=== PATIENT | male | born 1955 | race Asian ===

== ENCOUNTER 2016-12-12 07:42 | Day surgery (SDC) | payer OTHER ==
[~2016-12-12] VITALS: Ht 165.1 cm; Wt 97.7 kg
[~2016-12-12 07:42] MED LIST: CEFAZOLIN 1 GM/50 ML (PMX) 50 ML IVPB ONE; SOD CHLORIDE 0.9% 1,000 ML IV SCH
[2016-12-12 08:32] VITALS: Ht 165.1 cm; Wt 97.7 kg
[2016-12-12 08:38] VITALS: BP 121/81; PULSE 77; RESP 16
[2016-12-12] MEDS ORDERED: METF-385 (08:49)
[2016-12-12] MEDS ORDERED: GEMF600T60 PO (08:49)
[2016-12-12] MEDS ORDERED: GABA300C16 (08:49)
[2016-12-12] MEDS ORDERED: IRON PO (08:49)
[2016-12-12] MEDS ORDERED: CARB200T3 PO (08:49)
[2016-12-12] MEDS ORDERED: CARV3.1260 (08:49)
[2016-12-12] MEDS ORDERED: SIMV40TA7 (08:49)
[2016-12-12] MEDS ORDERED: FLUC200T52 PO (08:49)
[2016-12-12] MEDS ORDERED: METF-388 (08:49)
[2016-12-12] MEDS ORDERED: PROPOFOL 20 ML ONE (08:57)
[2016-12-12] MEDS ORDERED: FENTAnyl 50 MCG/ML VIAL ONE (08:57)
[2016-12-12] MEDS ORDERED: LIDOCAINE 2% (SDV) 5 ML INJ ONE (08:57)
[2016-12-12] MEDS ORDERED: ROCURONIUM 50 MG INJ ONE (08:57)
[2016-12-12] MEDS ORDERED: GLYCOPYRROLATE 0.4 MG INJ ONE (08:57)
[2016-12-12] MEDS ORDERED: NEOSTIGMINE 3 MG/3 ML SYRINGE ONE (08:57)
[2016-12-12] MEDS ORDERED: MIDAZOLAM 1 MG/ML 2 ML INJ ONE (08:58)
[2016-12-12] MEDS ORDERED: CEFAZOLIN 1 GM INJ ONE (08:59)
[2016-12-12] MEDS ORDERED: DIPHENHYDRAMINE 50 MG INJ IV PRN (09:00)
[2016-12-12] MEDS ORDERED: EPHEDrine SULFATE 50 MG/5 ML SYG IV PRN (09:00)
[2016-12-12] MEDS ORDERED: ATROPINE 1 MG/10 ML SYRINGE IV PRN (09:00)
[2016-12-12] MEDS ORDERED: MIDAZOLAM 1 MG/ML 2 ML INJ IV PRN (09:00)
[2016-12-12] MEDS ORDERED: hydrALAzine 20 MG INJ IV PRN (09:00)
[2016-12-12] MEDS ORDERED: LABETALOL HCL 20MG INJ IV PRN (09:00)
[2016-12-12] MEDS ORDERED: morphine (1 MG/ML) 10ML SYRINGE IV PRN ×3 (09:00)
[2016-12-12] MEDS ORDERED: MEPERIDINE 25 MG INJ IV PRN (09:00)
[2016-12-12] MEDS ORDERED: FENTAnyl 50 MCG/ML VIAL IV PRN ×2 (09:00)
[2016-12-12] MEDS ORDERED: ONDANSETRON 4 MG INJ IV PRN (09:00)
[2016-12-12] MEDS ORDERED: HYDROmorphONE (0.2 MG/ML) 10ML SYG IV PRN ×3 (09:00)
[2016-12-12] MEDS ORDERED: OXYCODONE/ACETAMINOPHEN (5/325) TAB PO PRN ×2 (09:00)
[2016-12-12] MEDS ORDERED: ONDANSETRON 4 MG INJ ONE (09:04)
--- NOTE | 2016-12-12 09:15 | RADRPT ---
PROCEDURE: XR Chest. CLINICAL INDICATION: Preop. TECHNIQUE: Single frontal view of the chest was obtained. COMPARISON: None. FINDINGS: There is mild cardiomegaly. There is calcification and slight unfolding of the thoracic aorta. The pulmonary vasculature appears normal. There is discoid atelectasis at the left lung base. No conf luent airspace process is seen. The costophrenic angles are well defined. There are mid sternotomy wires present. There is a ventricular peritoneal shunt catheter extending along the right hemithor ax. IMPRESSION: 1. Minimal discoid atelectasis at the left lung base. 2. No confluent airspace process identified. 3. Aortic atherosclerosis. RPTAT: [facility] Physician Mendy Date Time Electronically viewed and signed by Sterling Esteban Physician on 12/12/2016 09:14 /
[2016-12-12 09:22] LABS: BASOPHILS % 1.1 % (0.0-2.0); EOSINOPHILS # 0.1 10^3/ul (0.0-0.5); EOSINOPHILS % 3.3 % (0.0-7.0); HEMATOCRIT 34.6 % (42.0-52.0); HEMOGLOBIN 11.4 g/dl (14.0-18.0); LYMPHOCYTES # 1.1 10^3/ul (0.8-2.9); LYMPHOCYTES % 27.2 % (15.0-51.0); MEAN CORPUSCULAR HEMOGLOBIN 26.9 pg (29.0-33.0); MEAN CORPUSCULAR VOLUME 81.6 fl (82.0-101.0); MEAN PLATELET VOLUME 10.6 fl (7.4-10.4); MONOCYTE # 0.3 10^3/ul (0.3-0.9); MONOCYTES % 8.5 % (0.0-11.0); NEUTROPHIL # 2.3 10^3/ul (1.6-7.5); NEUTROPHILS % 59.9 % (39.0-77.0); RED BLOOD COUNT 4.24 10^6/ul (4.70-6.10); RED CELL DISTRIBUTION WIDTH 16.7 % (11.5-14.5); UNCORRECTED WBC 3.9 10^3/ul (4.8-10.8); WHITE BLOOD COUNT 3.9 10^3/ul (4.8-10.8)
[2016-12-12 09:26] LABS: CONDITION 1; LH ANALYZER COMMENTS 1
[2016-12-12 09:32] LABS: INR 1.14; PROTIME 14.6 Sec (12.2-14.2); PT RATIO 1.1
[2016-12-12 09:33] LABS: PARTIAL THROMBOPLASTIN TIME 29.7 Sec (25.0-35.0)
[2016-12-12 09:45] LABS: CALCIUM 8.9 mg/dl (8.4-10.2); CREATININE 0.63 mg/dl (0.61-1.24); POTASSIUM 4.2 mmol/L (3.5-5.1)
[2016-12-12 10:01] LABS: PLATELET COUNT 90 10^3/UL (140-440)
[2016-12-12] MEDS ORDERED: ASP81 PO (11:38)
[2016-12-12] MEDS ORDERED: CLOP75TA27 PO (11:38)
--- NOTE | 2016-12-12 16:20 | RADRPT ---
Vent Rate: 70 bpm RR Interval: 0 msec [place] Interval: 188 msec QRS Duration: 148 msec QT Interval: 444 msec QTC Interval: 479 msec P-R-T [place]: 37 - 43 - 34 degrees Normal sinus rhythm with sinus arrhythmia Right bundle branch block Abnormal ECG Electronically Signed By: Norman Hopper [id number]
== END 2016-12-12 10:45 | disposition home or self-care (01) ==
LOC: SDS 07:42
PROVIDERS: ATTEND Surgery Surgical Oncology
DX: T81.4XXS Infection following a procedure, sequela (principal); Y83.8 Other surgical procedures as the cause of abnormal reaction of the patient, or of later complication, without mention of misadventure at the time of the procedure; Z53.8 Procedure and treatment not carried out for other reasons; E11.9 Type 2 diabetes mellitus without complications; I25.10 Atherosclerotic heart disease of native coronary artery without angina pectoris; I50.9 Heart failure, unspecified
CPT/HCPCS: 71010; 80048; 82962; 85025; 85610; 85730; 93005; J0690; J2405; J2710; Z7610; J2250; J3010

== ENCOUNTER 2017-01-09 08:40 | Day surgery (SDC) | payer OTHER ==
[~2017-01-09] VITALS: Ht 170.2 cm; Wt 97.0 kg
[2017-01-09] VITALS (10 sets, daily range): BP systolic 121–159; BP diastolic 78–92; PULSE 72–85; RESP 16–18; Ht 170.2 cm; Wt 97.0 kg
[~2017-01-09 08:40] MED LIST changes: +ASPI81TA3 PO; +CARB200T3 PO; +CARV3.1260; +CEFAZOLIN 1 GM INJ ONE; +CLOP75TA27 PO; +DIPHENHYDRAMINE 50 MG INJ IV PRN; +FENTAnyl 50 MCG/ML VIAL IV PRN; +FLUC200T52 PO; +GABA300C16; +GEMF600T60 PO; +HYDROmorphONE (0.2 MG/ML) 10ML SYG IV PRN; +IRON PO; +LABETALOL HCL 20MG INJ IV PRN; +MEPERIDINE 25 MG INJ IV PRN; +METF1000; +METF850T; +METOCLOPRAMIDE 10 MG INJ IV PRN; +ONDANSETRON 4 MG INJ IV PRN; +OXYCODONE/ACETAMINOPHEN (5/325) TAB PO PRN; +PROCHLORPERAZINE 10 MG INJ IV PRN; +SIMV40TA7; +SOD CHLORIDE 0.9% 1,000 ML IV ONE; -SOD CHLORIDE 0.9% 1,000 ML IV SCH; +hydrALAzine 20 MG INJ IV PRN
[2017-01-09] MEDS ORDERED: IBUP100T46 PO (09:13)
[2017-01-09] MEDS ORDERED: NIT4 SL (09:13)
[2017-01-09] MEDS ORDERED: BUPIVACAINE 0.5%/EPI (SDV) 30 ML INJ ONE (09:39)
[2017-01-09] MEDS ORDERED: PROPOFOL 20 ML ONE (10:05)
[2017-01-09] MEDS ORDERED: LIDOCAINE 2% (SDV) 5 ML INJ ONE (10:05)
[2017-01-09] MEDS ORDERED: MIDAZOLAM 1 MG/ML 2 ML INJ ONE (10:05)
[2017-01-09] MEDS ORDERED: CEFAZOLIN 1 GM INJ ONE (10:05)
[2017-01-09] MEDS ORDERED: FENTAnyl 50 MCG/ML VIAL ONE (10:05)
[2017-01-09 10:08] LABS: BASOPHILS % 0.8 % (0.0-2.0); EOSINOPHILS # 0.1 10^3/ul (0.0-0.5); EOSINOPHILS % 3.7 % (0.0-7.0); HEMATOCRIT 34.5 % (42.0-52.0); HEMOGLOBIN 11.3 g/dl (14.0-18.0); LYMPHOCYTES # 1.3 10^3/ul (0.8-2.9); LYMPHOCYTES % 34.7 % (15.0-51.0); MEAN CORPUSCULAR HEMOGLOBIN 26.7 pg (29.0-33.0); MEAN CORPUSCULAR HGB CONC 32.7 g/dl (32.0-37.0); MEAN CORPUSCULAR VOLUME 81.8 fl (82.0-101.0); MEAN PLATELET VOLUME 9.6 fl (7.4-10.4); MONOCYTE # 0.3 10^3/ul (0.3-0.9); MONOCYTES % 7.9 % (0.0-11.0); NEUTROPHILS % 52.9 % (39.0-77.0); PLATELET COUNT 83 10^3/UL (140-440); RED BLOOD COUNT 4.23 10^6/ul (4.70-6.10); RED CELL DISTRIBUTION WIDTH 16.7 % (11.5-14.5); UNCORRECTED WBC 3.8 10^3/ul (4.8-10.8); WHITE BLOOD COUNT 3.8 10^3/ul (4.8-10.8)
[2017-01-09 10:13] LABS: CONDITION 1; LH ANALYZER COMMENTS 1
[2017-01-09 10:17] LABS: INR 1.14; PROTIME 14.6 Sec (12.2-14.2); PT RATIO 1.1
[2017-01-09 10:18] LABS: PARTIAL THROMBOPLASTIN TIME 30.3 Sec (25.0-35.0)
[2017-01-09 10:25] LABS: POTASSIUM 4.4 mmol/L (3.5-5.1)
[2017-01-09 10:27] LABS: CREATININE 0.61 mg/dl (0.61-1.24)
[2017-01-09 10:28] LABS: CALCIUM 8.8 mg/dl (8.4-10.2)
[2017-01-09] MEDS ORDERED: ONDANSETRON 4 MG INJ ONE (11:08)
[2017-01-09] MEDS ORDERED: METOCLOPRAMIDE 10 MG INJ ONE (11:08)
[2017-01-09] MEDS ORDERED: METOPROLOL 5 MG INJ ONE (11:21)
[2017-01-09] MEDS ORDERED: NEOMYC/POLYMYX/BACIT 30 GM OINT ONE (11:22)
--- NOTE | 2017-01-09 11:59 | OPR ---
DATE OF OPERATION: 01/09/2017 PREOPERATIVE DIAGNOSIS: Nonhealing sternal wound. POSTOPERATIVE DIAGNOSIS: Nonhealing sternal wound. OPERATION PERFORMED: Debridement of nonhealing sternal wound. ANESTHESIA: General. ANESTHESIOLOGIST: Shayna Taylor MD SURGEON: Blanco Kyle MD [employer] SUPERVISOR: Donovan Michel MD INDICATIONS FOR PROCEDURE: The patient is a 61-year-old male who had previously undergone coronary artery bypass surgery. His sternotomy wound develops signs of some infection and failed to heal. Brian villanueva was seen in the office and the recommendation was made for debridement. He consented and was sche duled for surgery. DESCRIPTION OF PROCEDURE: The patient was brought to the operating theater, placed under general an esthesia. The anterior thorax was shaved, prepped and draped in the usual sterile fashion. There w ere multiple areas of the nonhealing wound. Each area was debrided fully of nonviable tissue. Port ions of this tissue were sent for pathologic analysis. Minimal bleeding was controlled with cautery and then bacitracin ointment was then applied to the wounds as well as a sterile dressing. The pat ient tolerated the procedure well. The estimated blood loss was 20 mL. There were no complications and the patient was transported in stable condition to the recovery room. Dictated By: BLANCO KYLE MD TL/NTS Conf#: [id number] DID#: [id number] CC: ABDIAZIZ MICHEL MD;*EndCC*
[2017-01-09] MEDS ORDERED: HYPOGLYCEMIA PROTOCOL when Glucose is <70 mg/dL or symptomatic <90 mg/dL. XX ONE (12:00)
[2017-01-09] MEDS ORDERED: INSULIN ASPART [NOVOLOG] 3 ML PEN SC ONE (12:00)
[2017-01-09] MEDS ORDERED: GLUCOSE GEL 15 GRAM TUBE BUCCAL PRN (12:30)
[2017-01-09] MEDS ORDERED: GLUCAGON 1 MG INJ IM PRN (12:30)
[2017-01-09] MEDS ORDERED: GLUCOSE GEL 15 GRAM TUBE PO PRN ×2 (12:30)
[2017-01-09] MEDS ORDERED: DEXTROSE 50% 50 ML SYRINGE IV PRN ×2 (12:30)
--- NOTE | 2017-01-09 13:37 | RADRPT ---
Vent Rate: 69 bpm RR Interval: 0 msec [place] Interval: 190 msec QRS Duration: 148 msec QT Interval: 430 msec QTC Interval: 460 msec P-R-T [place]: 37 - 55 - 22 degrees Normal sinus rhythm with sinus arrhythmia Right bundle branch block Abnormal ECG Electronically Signed By: Norman Hopper [id number]
== END 2017-01-09 13:10 | disposition home or self-care (01) ==
LOC: SDS 08:40
PROVIDERS: ATTEND Surgery Surgical Oncology
DX: T81.4XXA Infection following a procedure, initial encounter (principal); B99.9 Unspecified infectious disease; Y83.8 Other surgical procedures as the cause of abnormal reaction of the patient, or of later complication, without mention of misadventure at the time of the procedure; Y92.89 Other specified places as the place of occurrence of the external cause; E11.9 Type 2 diabetes mellitus without complications; I25.10 Atherosclerotic heart disease of native coronary artery without angina pectoris; E66.9 Obesity, unspecified; Z68.35 Body mass index [BMI] 35.0-35.9, adult; I50.9 Heart failure, unspecified; Z95.1 Presence of aortocoronary bypass graft; E78.5 Hyperlipidemia, unspecified
CPT/HCPCS: 11042; 80048; 82962; 85025; 85610; 85730; 88305; 93005; J0690; J2250; J2405; J2765; J3010; Z7512; Z7610

== ENCOUNTER 2017-05-22 08:56 | Day surgery (SDC) | payer OTHER ==
[~2017-05-22] VITALS: Ht 167.6 cm; Wt 95.4 kg
[2017-05-22] VITALS (10 sets, daily range): BP systolic 93–155; BP diastolic 65–93; PULSE 56–82; RESP 16–22; Ht 167.6 cm; Wt 95.4 kg
[~2017-05-22 08:56] MED LIST changes: -ASPI81TA3 PO; -CARV3.1260; +CARV3.1260 PO; -CEFAZOLIN 1 GM/50 ML (PMX) 50 ML IVPB ONE; +CEFAZOLIN 2 GM/50 ML (PMX) 50 ML IVPB ONE; -CLOP75TA27 PO; -DIPHENHYDRAMINE 50 MG INJ IV PRN; -FENTAnyl 50 MCG/ML VIAL IV PRN; -GABA300C16; +GABA300C16 PO; -GEMF600T60 PO; -HYDROmorphONE (0.2 MG/ML) 10ML SYG IV PRN; +IBUP100T46 PO; -IRON PO; -LABETALOL HCL 20MG INJ IV PRN; -MEPERIDINE 25 MG INJ IV PRN; -METF1000; +METF1000 PO; -METF850T; -METOCLOPRAMIDE 10 MG INJ IV PRN; +NIT4 SL; -ONDANSETRON 4 MG INJ IV PRN; -OXYCODONE/ACETAMINOPHEN (5/325) TAB PO PRN; -PROCHLORPERAZINE 10 MG INJ IV PRN; -SIMV40TA7; +SIMV40TA7 PO; -SOD CHLORIDE 0.9% 1,000 ML IV ONE; -hydrALAzine 20 MG INJ IV PRN
[2017-05-22] MEDS ORDERED: SOD CHLORIDE 0.9% 1,000 ML IV SCH (09:30)
[2017-05-22 09:55] LABS: ABNORMAL IP MESSAGE 1; BASOPHIL # 0.1 10^3/ul (0.0-0.1); BASOPHILS % 1.3 % (0.0-2.0); EOSINOPHILS # 0.2 10^3/ul (0.0-0.5); EOSINOPHILS % 6.2 % (0.0-7.0); HEMATOCRIT 40.1 % (42.0-52.0); HEMOGLOBIN 12.8 g/dl (14.0-18.0); LYMPHOCYTES # 1.4 10^3/ul (0.8-2.9); LYMPHOCYTES % 36.6 % (15.0-51.0); MEAN CORPUSCULAR HEMOGLOBIN 25.4 pg (29.0-33.0); MEAN CORPUSCULAR HGB CONC 31.9 g/dl (32.0-37.0); MEAN CORPUSCULAR VOLUME 79.6 fl (82.0-101.0); MEAN PLATELET VOLUME 10.8 fl (7.4-10.4); MONOCYTE # 0.4 10^3/ul (0.3-0.9); MONOCYTES % 11.6 % (0.0-11.0); NEUTROPHIL # 1.6 10^3/ul (1.6-7.5); PLATELET COUNT 92 10^3/UL (140-415); RED BLOOD COUNT 5.04 10^6/ul (4.70-6.10); RED CELL DISTRIBUTION WIDTH 17.7 % (11.5-14.5); WHITE BLOOD COUNT 3.7 10^3/ul (4.8-10.8)
[2017-05-22] MEDS ORDERED: CLOP75TA27 PO (09:56)
[2017-05-22 10:06] LABS: INR 1.12; PROTIME 14.4 Sec (12.2-14.2); PT RATIO 1.1
[2017-05-22 10:07] LABS: PARTIAL THROMBOPLASTIN TIME 30.6 Sec (25.0-35.0)
[2017-05-22 10:09] LABS: ADD SCAN DIFF NO
[2017-05-22 10:17] LABS: ALBUMIN 4.8 g/dl (3.3-4.9); ALBUMIN/GLOBULIN RATIO 1.33; BILIRUBIN,INDIRECT 0.2 mg/dl (0-1.1); BILIRUBIN,TOTAL 0.2 mg/dl (0.2-1.3); TOTAL PROTEIN 8.4 g/dl (6.1-8.1)
--- NOTE | 2017-05-22 10:17 | RADRPT ---
PROCEDURE: Chest Radiograph. CLINICAL INDICATION: Surgical wound debridement. TECHNIQUE: Single frontal chest radiograph. COMPARISON: Chest radiograph 12/12/2016 FINDINGS: Patient is status post sternotomy. Heart size is within normal limits. Atherosclerotic calcificati ons are present. There is left mid lung zone scarring or atelectasis which is stable. No infiltrate or effusion is seen. The bones are intact. Incidental note is made of a catheter overlying the right chest likely related to a ventriculoperitoneal shunt. IMPRESSION: 1. Stable radiographic appearance of chest compared to 12/12/2016. RPTAT: KK .Quentin Blanchard MD, MD Date Time Electronically viewed and signed by .Quentin Blanchard MD, on 05/22/2017 10:17 .B/
[2017-05-22] MEDS ORDERED: ASPI81TA3 PO (10:23)
[2017-05-22 10:42] LABS: CALCIUM 9.4 mg/dl (8.4-10.2); CREATININE 0.65 mg/dl (0.61-1.24)
[2017-05-22] MEDS ORDERED: PROPOFOL 20 ML ONE (12:13)
[2017-05-22] MEDS ORDERED: LIDOCAINE 100 MG SYRINGE ONE (12:22)
[2017-05-22] MEDS ORDERED: KETOROLAC 30 MG INJ ONE (12:23)
[2017-05-22] MEDS ORDERED: ONDANSETRON 4 MG INJ ONE (12:23)
[2017-05-22] MEDS ORDERED: hydrALAzine 20 MG INJ ONE (12:38)
[2017-05-22] MEDS ORDERED: LIDOCAINE 1% (STERILE-PAK) 30 ML INJ ONE (12:45)
[2017-05-22] MEDS ORDERED: BUPIVACAINE 0.5% (SDV) 30 ML INJ ONE (12:47)
[2017-05-22] MEDS ORDERED: LIDOCAINE 2% (MDV) 20 ML INJ ONE (12:48)
[2017-05-22] MEDS ORDERED: LIDOCAINE 2% (MDV) 20 ML INJ INJ ONE (12:56)
[2017-05-22] MEDS ORDERED: BUPIVACAINE 0.5% (SDV) 30 ML INJ INJ ONE (12:56)
[2017-05-22] MEDS ORDERED: NEOMYC/POLYMYX/BACIT 30 GM OINT ONE (13:00)
--- NOTE | 2017-05-25 20:56 | RADRPT ---
Vent Rate: 61 bpm RR Interval: 0 msec [place] Interval: 206 msec QRS Duration: 158 msec QT Interval: 460 msec QTC Interval: 463 msec P-R-T [place]: 41 - -5 - 15 degrees Sinus rhythm with marked sinus arrhythmia Right bundle branch block Abnormal ECG Electronically Signed By: Dm Garcia [id number]
== END 2017-05-22 14:40 | disposition home or self-care (01) ==
LOC: SDS 08:56
PROVIDERS: ATTEND Surgery Surgical Oncology
DX: T81.89XA Other complications of procedures, not elsewhere classified, initial encounter (principal); Y83.8 Other surgical procedures as the cause of abnormal reaction of the patient, or of later complication, without mention of misadventure at the time of the procedure; Y92.89 Other specified places as the place of occurrence of the external cause; I25.10 Atherosclerotic heart disease of native coronary artery without angina pectoris; E11.9 Type 2 diabetes mellitus without complications; I50.9 Heart failure, unspecified
CPT/HCPCS: 11042; 71010; 80053; 82962; 85025; 85610; 85730; 93005; J0360; J0690; J1885; J2001; J2405; J3010; Z7512; Z7610